=== PATIENT | female | born 1980 | race Caucasian/White ===

== ENCOUNTER 2016-11-08 07:15 | Day surgery (SDC) | payer OTHER ==
[2016-11-08] MEDS ORDERED: NALOXONE HCL INJ/PF 0.4 MG/1 ML SDV ONE (07:49)
[2016-11-08] MEDS ORDERED: PROMETHAZINE HCL INJ 25 MG/1 ML VIAL ONE (07:49)
[2016-11-08] MEDS ORDERED: ONDANSETRON HCL INJ/PF 4 MG/2 ML SDV ONE (07:49)
[2016-11-08] MEDS ORDERED: DIPHENHYDRAMINE HCL 50 MG/ML VIAL ONE (07:49)
[2016-11-08] MEDS ORDERED: MIDAZOLAM 2 MG/2 ML INJ ONE (07:50)
[2016-11-08] MEDS ORDERED: FENTANYL CITRATE INJ/PF 100 MCG/2 ML AMPUL ONE (07:51)
[2016-11-08] MEDS ORDERED: GLUCAGON,HUMAN RECOMB 1 MG INJ ONE (07:51)
[2016-11-08] MEDS ORDERED: FLUMAZENIL INJ 0.5 MG/5 ML VIAL IV ONE (07:51)
[2016-11-08] MEDS ORDERED: EPINEPHRINE INJ 1 MG/10 ML DISP.SYRIN ONE (07:51)
[2016-11-08] MEDS: MIDAZOLAM 2 MG/2 ML INJ ONE ×2 (08:16→08:20)
--- NOTE | 2016-11-08 08:35 | Operative Report ---
Operative Report DATE OF SURGERY: 11/08/16 Operative Report: The risks benefits and alternatives of the procedure explained to the patient in detail and informed consent is obtained that GIF Olympus video scope was inserted into the patient's mouth and hypopharynx the esophagus is identified intubated and insufflated the scope was then advanced through the esophagus stomach and duodenum retroflexion maneuver is done the esophagus stomach and first and second portions of the duodenum examined PREOPERATIVE DIAGNOSIS: Dysphagia POSTOPERATIVE DIAGNOSIS: Esophageal rings and furrows suggestive of eosinophilic esophagitis. Dominant Schatzki's ring. Hiatal hernia. Gastritis OPERATION: EGD with biopsy SURGEON: JAYLIN MUSTAFA ANESTHESIA: Moderate Sedation - 4 mg of Versed, 75 g of fentanyl. Conscious sedation monitoring time 15 minutes. TISSUE REMOVED OR ALTERED: Esophageal specimens obtained. Gastric mucosal specimens obtained COMPLICATIONS: None. ESTIMATED BLOOD LOSS: none. INTRAOPERATIVE FINDINGS: As noted above. PROCEDURE: Patient tolerated the procedure well. No immediate postprocedure complications are noted. Patient is discharged in good condition. Discharge date 11/08/2016. Discharge diet: Regular. Discharge activity: Regular. Patient does have a 2-3 week follow-up to discuss findings. We'll follow-up on biopsies. Patient to call the office or proceed to the emergency room after any further problems or questions.
[2016-11-08 09:43] VITALS: BP 126/42
== END 2016-11-08 09:30 | disposition home or self-care (01) ==
LOC: END 07:15
PROVIDERS: ATTEND Internal Medicine Gastroenterology
PROC: 0DB48ZX Excision of Esophagogastric Junction, Via Natural or Artificial Opening Endoscopic, Diagnostic (ICD-10-PCS; 2016-11-08)
PROC: 0DB68ZX Excision of Stomach, Via Natural or Artificial Opening Endoscopic, Diagnostic (ICD-10-PCS; principal; 2016-11-08 08:00)
DX: K44.9 Diaphragmatic hernia without obstruction or gangrene (principal); K22.9 Disease of esophagus, unspecified; K29.50 Unspecified chronic gastritis without bleeding; J45.909 Unspecified asthma, uncomplicated; F32.9 Major depressive disorder, single episode, unspecified; F41.9 Anxiety disorder, unspecified; Z87.891 Personal history of nicotine dependence; Z79.51 Long term (current) use of inhaled steroids; Z79.899 Other long term (current) drug therapy; Z88.5 Allergy status to narcotic agent; Z88.1 Allergy status to other antibiotic agents
CPT/HCPCS: 43239; 88305 ×2; J2250; J3010; J0171; J1200; J1610; J2310; J2405; J2550; J3490